=== PATIENT | male | born 1985 | race Two or more races ===

== ENCOUNTER → 2017-05-04 | Emergency (ER) | payer MEDICAID ==
[~2017-05-04] VITALS: Ht 154.9 cm; Wt 68.0 kg
[~2017-05-04] MED LIST: ANUSOL-HC30 GM RC; COLACE100 MG ORAL; LD2JL30 TOPIC
--- NOTE | 2017-05-04 13:23 | Emergency Room Report ---
History of Present Illness General Chief Complaint: Pain Source: Patient Present Illness HPI 31-year-old male presents to the emergency department complaining of acute rectal pain and bleeding after one week of constipation. Patient reports spotting printed blood per rectum on the toilet paper after a bowel movement this a.m. Patient reports 10 out of 10 sharp localized rectal pain all straining. Patient reports mild tenderness once again. Patient denies history of hemorrhoids. denies abdominal pain, diarrhea. Nausea or vomiting. denies fevers or chills. denies hx of significant changes in weight or family or personal hx of cancer. Denies CP, Palpitations, LOC, AMS, dizziness, Changes in Vision, Sensation, paresthesias, or a sudden severe headache. Allergies: Coded Allergies: No Known Allergies (Unverified , 05/04/17) Patient History Past Medical History: see triage record Past Surgical History: none Pertinent Family History: none Immunizations: UTD Reviewed Nursing Documentation: PMH: Agreed, PSxH: Agreed Nursing Documentation-PMH Past Medical History: No Stated History Review of Systems All Other Systems: negative except mentioned in HPI Physical Exam Vital Signs Date Time Temp Pulse Resp B/P Pulse Ox O2 Delivery O2 Flow Rate FiO2 05/04/17 13:00 98.1 80 20 131/80 96 Room Air Sp02 EP Interpretation: reviewed, normal General Appearance: no apparent distress, alert, GCS 15, non-toxic Head: normocephalic, atraumatic Eyes: bilateral eye PERRL, bilateral eye normal inspection ENT: hearing grossly normal, normal pharynx, no angioedema, normal voice Neck: full range of motion, supple/symm/no masses Respiratory: lungs clear, normal breath sounds, speaking full sentences Cardiovascular #1: regular rate, rhythm, no edema Gastrointestinal: normal bowel sounds, non tender, soft, no guarding, no rebound Rectal: deferred, hemorrhoids - non-thrombosed, bleeding external hemorrhoid in the 3 o'Clock position Genitourinary: normal inspection Musculoskeletal: back normal, gait/station normal, normal range of motion, non- tender Neurologic: alert, oriented x3, responsive, motor strength/tone normal, sensory intact, speech normal Psychiatric: judgement/insight normal, memory normal, mood/affect normal Skin: normal color, no rash, warm/dry, well hydrated Medical Decision Making PA Attestation Dr. edgar is my supervising Physician whom patient management has been discussed with. Diagnostic Impression: Primary Impression: Bleeding external hemorrhoids ER Course 31-year-old male presents to the emergency department complaining of acute rectal pain and bleeding after one week of constipation. Patient reports spotting printed blood per rectum on the toilet paper after a bowel movement this a.m. Patient reports 10 out of 10 sharp localized rectal pain all straining. Patient reports mild tenderness once again. Patient denies history of hemorrhoids. denies abdominal pain, diarrhea. Nausea or vomiting. denies fevers or chills. denies hx of significant changes in weight or family or personal hx of cancer. Denies CP, Palpitations, LOC, AMS, dizziness, Changes in Vision, Sensation, paresthesias, or a sudden severe headache. Ddx considered but are not limited to constipation , anal fissure, perianal abscess, rectal wall tear, thrombosed hemorrhoid, hemorrhoid. Vital signs: are WNL, pt. is afebrile H&PE are most consistent with non-thrombosed, bleeding external hemorrhoid , secondary to straining/ constipation. bowl sounds are normo active. ORDERS:none required at this time, the dx is clinical ED INTERVENTIONS: - Discussed the patient's self care interventions for hemorrhoids DISCHARGE: At this time pt. is stable for d/c to home. Will provide printed patient care instructions, and any necessary prescriptions. Care plan and follow up instructions have been discussed with the patient prior to discharge. Last Vital Signs Date Time Temp Pulse Resp B/P Pulse Ox O2 Delivery O2 Flow Rate FiO2 05/04/17 13:00 98.1 80 20 131/80 96 Room Air Disposition: HOME, SELF-CARE Condition: Stable Scripts Lidocaine HCL 2% Jelly* (Lidocaine Jelly 2%*) 5 Ml [email or web address] 1 ML TOPIC QID, #5 ML Prov: Sharron Coker 05/04/17 Docusate Sodium* (COLACE*) 100 Mg Capsule 100 MG ORAL THREE TIMES A DAY, #90 CAP Prov: [place] 05/04/17 Hydrocortisone Hc 2.5% Cream (ANUSOL-HC 2.5% CREAM) Y Cr 1 APPLIC RC TID, #30 GM Prov: Sharron Coker 05/04/17 Patient Instructions: Hemorrhoids Additional Instructions: Take medications as directed. Follow up with a Primary Care Provider in 3-5 days, even if your symptoms have resolved. --Please review list of primary care clinics, if you do not already have a primary care provider Return sooner to ED if new symptoms occur, or current symptoms become worse. - Please note that this Emergency Department Report was dictated using [employer] strategist technology software, occasionally this can lead to erroneous entry secondary to interpretation by the dictation equipment. Sharron Coker May 04, 2017 13:23
[2017-05-04 13:27] VITALS: BP 131/80
[2017-05-04 13:33] VITALS: BP 131/80
== END | disposition home or self-care (01) ==
LOC: EDBD 14:00 → EMR 14:00
DX: K64.4 Residual hemorrhoidal skin tags (principal); K59.00 Constipation, unspecified
CPT/HCPCS: 99284